=== PATIENT | male | born 1995 | race Caucasian/White ===

== ENCOUNTER 2021-11-08 04:29 | Emergency (ER) | payer SELFPAY ==
[~2021-11-08] VITALS: Ht 180.3 cm; Wt 88.4 kg
[2021-11-08 04:32] VITALS: BP 137/84
[2021-11-08] MEDS ORDERED: TRAMADOL 50MG TABLET PO ONE (07:45)
[2021-11-08] MEDS ORDERED: CIPHCO LEFT EAR (09:47)
[2021-11-08] MEDS ORDERED: AMOX1TAB16 MT (09:47)
[2021-11-08] MEDS ORDERED: TRAM50TA3 MT (09:47)
== END 2021-11-08 10:01 | disposition home or self-care (01) ==
LOC: ER 04:29
DX: H66.92 Otitis media, unspecified, left ear (principal); H60.92 Unspecified otitis externa, left ear
CPT/HCPCS: 99283